=== PATIENT | female | born 1985 | race African-American/Black ===

== ENCOUNTER 2017-05-22 23:59 | Emergency (ER) | payer OTHER ==
[~2017-05-22 23:59] MED LIST: PENI500T; REGLAN 10 MG PO; Z.0.NO CURRENT MEDS
[2017-05-23] MEDS ORDERED: MACR100C2 PO ×2 (00:45)
--- NOTE | 2017-05-23 00:46 | PD ---
HPI Chief Complaint Lower pelvic pain Date Seen: May 23, 2017 Time Seen: 00:41 Travel History International Travel<30 Days: No Contact w/Intl Traveler<30Days: No Known Affected Area: No History of Present Illness HPI 31-year-old who is at 20 weeks 5 days comes in today complaining of lower pelvic pain that has been apparent for the past 3 days worse this evening. Patient states that she has been having some frequency some hesitancy in the urine production but denies dysuria. Some mild nausea has been noted but denies abdominal pain, contractions, or vaginal bleeding. I don't have any prenatals the patient denies any antepartum complications and her previous OB history was complicated by a section. Weeks Gestation: 20 Para: 1 : 3 Miscarriage: 1 History Past Medical History Medical History: Denies Significant Hx Obstetric History Obstetric History section Family History Family History: Negative Social History Alcohol Use: No Tobacco Use: No Substance Abuse: No Allergies-Medications (Allergen,Severity, Reaction): Coded Allergies: aspirin (Unverified Allergy, Mild, Swelling, 03/07/17) ibuprofen (Unverified Allergy, Mild, EYES AND THROAT SWELL, 03/07/17) Home Meds Active Scripts [Reglan 10 Mg] No Conflict Check, 10 MG PO 1 TAB 30MIN AC & HS, #30 0 Refills Prov:MARIANA CORNEJO M.D. 01/14/06 Reported Medications Penicillin V Potassium (Pen Vk) 500 Mg Tab 09/25/06 Miscellaneous (No Current Meds) Misc 01/14/06 Review of Systems Except as stated in HPI: all other systems reviewed are Neg Physical Exam Narrative GENERAL: Well-nourished, well-developed patient. SKIN: Warm and dry. HEAD: Normocephalic and atraumatic. EYES: No scleral icterus. No injection or drainage. ENT: No nasal drainage noted. Mucous membranes pink. Airway patent. NECK: Supple, trachea midline. No JVD. ABDOMEN/GI: Abdomen soft, non-tender, bowel sounds present, no rebound, no guarding Gravid to [-20] weeks size Fundal Height: [-] GENITOURINARY: heart rate is 148 External Genitalia: intact and normal in appearance BUS glands: [-Normal] Cervix: [-Closed both to visualization and palpation] Dilatation: [-] Effacement: [-0] Station: [-High] Presentation: [-] Membranes: [intact Uterine Contractions: [Absent-] EXTREMITIES: No cyanosis or edema. BACK: Nontender without obvious deformity. No CVA tenderness. NEUROLOGICAL: Awake and alert. Motor and sensory grossly within normal limits. Five out of 5 muscle strength in all muscle groups. Normal speech. Urine dip is positive for leukocytes and nitrites small ketones and blood. Data Data Vital Signs Reviewed: Yes [facility] Medical Record Reviewed: Yes Plan 31-year-old who is at 20 weeks 5 days with on clinical examination is normal with no signs of early loss or labor Urine will be sent for culture and patient was given a prescription for Macrobid for the next 7 days and will follow-up with her OB provider for continued care Diagnosis Diagnosis: Primary Impression: Urinary tract infection affecting , antepartum Additional Impressions: Previous section complicating , antepartum condition or complication 20 weeks gestation of Disposition: DISCHARGE HOME Scripts Nitrofurantoin Monohydrate Macrocrystals (Macrobid) 100 Mg Cap 100 MG PO BID for Infection, #14 CAP 0 Refills Prov: Gosia Fleming MD 05/23/17 Gosia Fleming MD May 23, 2017 00:46
[2017-05-23 01:02] LABS: AMORPHOUS SEDIMENT, URINE OCC; BILIRUBIN, URINE NEG (NEG); BLOOD, URINE NEG (NEG); GLUCOSE,URINE NEG (NEG); KETONE, URINE 10 mg/dL (NEG); MUCUS URINE MANY /lpf (OCC); NITRITE,URINE POS (NEG); SQUAMOUS EPITHELIAL CELL URINE 7 /hpf (0-5); URINE COLOR YELLOW (YELLW/STRAW); URINE LEUKOCYTE ESTERASE NEG (NEG)
== END 2017-05-23 00:53 | disposition home or self-care (01) ==
LOC: HOBED 23:59
DX: O23.42 Unspecified infection of urinary tract in pregnancy, second trimester (principal); B95.7 Other staphylococcus as the cause of diseases classified elsewhere; R10.30 Lower abdominal pain, unspecified; Z3A.20 20 weeks gestation of pregnancy
CPT/HCPCS: 81001; 86403; 87077; 87086; 87186; 99284